=== PATIENT | male | born 1990 | race Caucasian/White ===

== ENCOUNTER 2025-09-29 23:32 | Inpatient (IN) | payer BC, SELFPAY ==
[2025-09-29 20:04] VITALS: BP 227/146
[2025-09-29] MEDS: DILAUDID 1.5 MG IV (21:19)
[2025-09-29 21:28] VITALS: BMI 62.6
[2025-09-29] MEDS: ZOFRAN 4 MG IV (21:32)
[2025-09-29 21:46] LABS: Hematocrit 42.1 % (39.0-52.0); Hemoglobin 13.8 g/dL (13.0-18.0); Mean Corp Hgb Conc. 32.8 g/dL (33.0-37.0); Mean Corpuscular Volume 89.2 fL (80.0-94.0); Nucleated Red Blood Cells % 0 % (-); Platelet Count 346 10^3/uL (130-400); Red Cell Dist. Width 12.7 % (11.5-14.5)
[2025-09-29 21:47] LABS: Urine Character Clear (Clear)
[2025-09-29 22:05] LABS: ALT (SGPT) 20 U/L (0-50); AST (SGOT) 23 U/L (17-59); Albumin 4.5 g/dl (3.5-5.0); Alkaline Phosphatase 89 U/L (38-126); Blood Urea Nitrogen 15 mg/dl (9-20); Calcium 9.5 mg/dl (8.4-10.2); Carbon Dioxide 25 mmol/L (22-30); Chloride 103 mmol/L (98-107); Estimated Creatinine Clearance > 125 ml/min; Glucose 107 mg/dl (70-99); Lipase 56 U/L (23-300); Potassium 4.4 mmol/L (3.5-5.1); Sodium 134 mmol/L (135-145); Total Protein 7.7 g/dl (6.3-8.2); eGFR > 60.00
[2025-09-29 22:09] LABS: Urine Red Blood Cell 50-60 /HPF (0-2); Urine White Cell 0-2 /HPF (0-5)
[2025-09-29 22:13] VITALS: BP 223/126
--- NOTE | 2025-09-29 22:18 | EDRN ---
Pt's says pt has had L flank pain all day, went to urgent care and because his bp was so high they would not give him pain medication. Pt did not have nausea until medicated with dilaudid in ED. No vomiting. Pt with difficulty urinating.
No fever/chills/cough, blood in urine/burning. Pt took ibuprofen and marijuana at home for pain which did not help. Pt with hx kidney stones and says pain is similar to previous pain with stone. Pt admits he has not taken any of his medications
in few weeks because he ran out and has not gone back to the doctor to get them refilled.
[2025-09-29] MEDS: FLOMAX 0.4 MG PO (23:03)
[2025-09-29] MEDS: TRANDATE 10 MG IV (23:04)
--- NOTE | 2025-09-29 23:07 | HPS.HSE ---
Family Physician
-
Family Physician: RAYO Mayfield
Chief Complaint
-
Flank pain
History of Present Illness
This is a 35-year-old male with past medical history significant for hypertension, nephrolithiasis status post tenting the past coming into the emergency department with flank pain.
Patient reports acute onset of left-sided flank pain starting around this afternoon with associated nausea but no vomiting. He denies any dysuria, urgency or frequency. He denies having any fevers or chills. He continue to have severe flank pain
so decided come to the emergency department. Patient had a prior history of nephrolithiasis about 10 years ago requiring stent placement.
Patient has history of longstanding hypertension but is noncompliant has not has not taken his blood pressure medications for about 1 month. He states that this is due to fear of a side effect of erectile dysfunction. He also has been diagnosed
with obstructive sleep apnea and does not use a CPAP.
In the emergency department patient was hypertensive to 223/126, pulse in the 80s, oxygen saturation of 95%. He was afebrile with a Tmax of 97.5.
CBC was notable for white count 14.1 otherwise unremarkable. Electrolytes BUN/creatinine with no reported creatinine 1.4 which is up from a prior baseline of 0.8 about 6 years ago. UA is positive for blood and RBCs but otherwise unremarkable. CT
of the abdomen pelvis with a 5 mm distal left ureteral calculus with mild obstructive uropathy.
Medical History
Past Medical History
Past Medical History: Reports HTN and Other (Nephrolithiasis, morbid obesity, anxiety, obstructive sleep apnea)
Past Surgical History: Reports Tonsilectomy and Other (Renal stents, rhinoplasty,)
Social History
Tobacco: Non-smoker
Alcohol: None
Drug: None
Personal:
Living: With Family
Employment: Not Employed
Family History
Family History: Not pertinent
Allergies / Home Medications
Allergies reflects when Allergies were last updated in [facility].
Home Medications with original date entered in [facility]
Allergy/Medication List:
Allergies
Allergy/AdvReac Type Severity Reaction Status Date / Time
vancomycin Allergy migraines. Verified 09/29/25 20:10
Home Medications
carvedilol 25 mg tablet 25 mg PO BID 09/29/25
hydrochlorothiazide 12.5 mg tablet 12.5 mg PO DAILY 09/29/25
lisinopril 5 mg tablet 5 mg PO DAILY 09/29/25
Review of Systems
-
Constitutional: Reports No Symptoms
EENT: Reports No Symptoms
Respiratory: Reports No Symptoms
Cardiac: Reports No Symptoms
Abdomen/GI: Reports No Symptoms
: Reports Flank Pain
Musculoskeletal: Reports No Symptoms
Skin: Reports No Symptoms
Neurological: Reports No Symptoms
Endocrine: Reports No Symptoms
Hematologic/Lymphatic: Reports No Symptoms
Psych: Reports No Symptoms
Physical Exam
Vital Signs
Vital Signs
Temp Pulse Resp BP Pulse Ox
97.5 F 86 16 223/126 95
09/29/25 20:04 09/29/25 22:13 09/29/25 22:13 09/29/25 22:13 09/29/25 22:13
Physical Exam
General: Well Developed, Well Nourished, No Apparent Distress and Morbidly Obese
HEENT: NormoCephalic, Moist mucous membranes and Atraumatic
Respiratory: Clear
Cardiac: S1/S2 and Regular Rhythm; No Murmur or Rub
GI: Soft, Non Tender, Non Distended and Normal Bowel Sounds; No Organomegaly
Rectal: Deferred by Provider
Musculoskeletal: No Clubbing, No Cyanosis and No Edema
Skin: No Rash
Neuro: AO x 3 and Nonfocal/grossly intact
Psych: Calm
Laboratory Results
-
09/29/25 21:39
09/29/25 21:39
Laboratory Results
Total Bilirubin 0.6 mg/dl (0.2-1.3) 09/29/25 21:39
AST 23 U/L (17-59) 09/29/25 21:39
ALT 20 U/L (0-50) 09/29/25 21:39
Alkaline Phosphatase 89 U/L (38-126) 09/29/25 21:39
Lipase 56 U/L (23-300) 09/29/25 21:39
Data Reviewed
-
CT Scan: Report Reviewed by me
Lab Data: Labs Reviewed by me
Old Records: Reviewed
Impression/Plan
-
IMPRESSION:
35-year-old with morbid obesity, uncontrolled hypertension noncompliant with antihypertensives, REAL noncompliant with CPAP presents to the emergency department with flank pain and found to have a 5 mm obstructing stone in the left distal ureter with
mild hydronephrosis. No signs of acute infection. Creatinine 1.4 with a prior creatinine of 0.8 about 6 years ago. Patient has not followed up. He is hypertensive here but is noncompliant with his antihypertensive regimen. He has no focal
neurological deficits. He has no chest pain.
PLAN:
Nephrolithiasis -5 mm obstructing left distal ureteral stone, no signs of acute infection. History of prior nephrolithiasis status post stenting.
- Admit to telemetry due to uncontrolled hypertension at this time
- N.p.o.
- Analgesics with oral and IV opioids.
� Antiemetics
� Consulted urology, urology aware and patient is scheduled for OR in AM.
Uncontrolled hypertension -noncompliance due to fear of ED
- Restart carvedilol on 5 mg now and continue department grams p.o. twice daily
� Restart patient's lisinopril 5 mg
- prn enalapril for now
Sleep apnea - not on cpap
- oxygen prn for now
DVT PPX - SCD pending procedure
Code status - Full Code
--- NOTE | 2025-09-29 23:11 | ED.GENMED ---
History of Present Illness
<Natalee Case PA-C - Last Filed: 09/29/25 23:16>
General
Chief Complaint: Flank Pain
Source: patient
Exam Limitations: none
Time Seen by Provider: 09/29/25 20:51
Nursing documentation reviewed up to this point in time: agreed with
History of Present Illness
History of Present Illness:
see MDM
Past History
<Natalee Case PA-C - Last Filed: 09/29/25 23:16>
Past History
ED Past Medical History: HTN (Noncompliant with medications), Hypercholesterolemia and Other (Cellulitis, lymphedema-left leg)
ED Past Surgical History: None
Social History
Tobacco: Non-smoker
Alcohol: None
Personal: Single
Living: with family
Employment: Employed (computer game programmer)
Family History
Family History: Other
Review of Systems
<Natalee Case PA-C - Last Filed: 09/29/25 23:16>
Review of Systems
Allergies reviewed?: Yes
All Other Systems: Not applicable
Phy Exam
<Natalee Case PA-C - Last Filed: 09/29/25 23:16>
Physical Exam
Physical Exam:
GENERAL: Alert, uncomfortable obese
Neck: supple
CARDIAC: Regular rate and rhythm .
LUNGS: Clear breath sounds bilaterally, no acute respiratory distress, no wheezes/rales/rhonchi
ABDOMEN: Soft, normal bowel sounds, nondistended, nontender no guarding, no rebound, neg landon's
: normal inspection of region
nontender testicles b/l
no rashes
NEUROLOGICAL: Alert and oriented, no focal neuro deficits
SKIN: Warm and dry, sk pale
PSYCH: Normal and appropriate interaction.
Course
<Natalee Case PA-C - Last Filed: 09/29/25 23:16>
Orders/Labs/Results
Orders:
Orders
09/29/25 21:10
HYDROmorphone [Dilaudid] 2 mg IV NOW STA
09/29/25 21:11
CT Abd/pel Without Iv Or Oral Urgent
Comment:
Reason For Exam: L flank pain
09/29/25 21:24
Ondansetron Injectable [Zofran] 4 mg .ROUTE .STK-MED ONE
09/29/25 21:32
Ondansetron Injectable [Zofran] 4 mg IV NOW STA
09/29/25 21:39
Complete Blood Count/With Diff Urgent
Comprehensive Metabolic Panel Urgent
Lipase Urgent
Urinalysis Reflex To Culture Urgent
Date Specimen was Collected: 09/29/25
Time Specimen was Collected: 21:18
Urine Microscopic Reflex Cult Urgent
09/29/25 22:57
Electrocardiogram (*1) Urgent
Reason for Study: Hypertension, Benign
EKG- Treatment ONCE
Labetalol HCl [Trandate] 10 mg IV NOW STA
Tamsulosin [Flomax] 0.4 mg PO NOW STA
09/29/25 22:58
Bladder Scan- Treatment ONCE
09/29/25 23:22
Carvedilol [Coreg] 25 mg PO NOW STA
09/29/25 23:25
HYDROmorphone [Dilaudid] 0.5 mg IV NOW STA
09/29/25 23:26
Admit/Transfer Patient As Directed
Co-Sign Provider:
Level of Care: Inpatient admission
Assign to:: Telemetry
Physician / Group: Alissa
Diagnosis: nephrolithiasis
Reason for Telemetry: Other
Other Reason for Telemetry: uncontrolled htn
Date to Stop Telemetry: 10/01/25
Time to Stop Telemetry: 11:00
Reason for Hospitalization: obstructing 5mm L ureteral stone
Expected length of stay greater than two midnights?: Yes
ELOS- Estimated Length of Stay in days: 2
I certify the patient meets the requirements for IP care: Yes
09/29/25 23:27
Code Status As Directed
Resuscitation Status: Full Code
09/29/25 23:32
Enalaprilat [Vasotec] 0.625 mg IV NOW STA
09/30/25 00:34
Acetaminophen [Tylenol] 650 mg PO Q4HPRN PRN
Bisacodyl [Dulcolax] 10 mg RECTAL [id number] PRN
Docusate W/Senna [Senokot-S] 1 tablet PO BIDPRN PRN
HydrALAZINE [Apresoline] 10 mg IV Q4HPRN PRN
Oxycodone [Roxicodone] 5 mg PO Q4HPRN PRN
Polyethylene Glycol Powder [Miralax] 17 grams PO DAILYPRN PRN
09/30/25 00:34
UROLOGY CONSULT Routine
Consulting Provider: Jeremiah Campbell
Was physician already notified: Yes
Activity As Directed
Activity Level: With Assistance
Intake/ Output As Directed
Frequency: Per unit guidelines
Pneumatic Compression Sleeves As Directed
Type: Knee high
Vital Signs As Directed
Frequency: Per unit guidelines
Pulse Ox/cont/shift [RESP] Routine
Quantity: 1
DX Deep Vein Thrombosis Video Routine
09/30/25 03:00
Ondansetron Injectable [Zofran] 4 mg IV Q6HPRN PRN
09/30/25 04:00
HYDROmorphone [Dilaudid] 1 mg IV Q4HPRN PRN
09/30/25 Breakfast
NPO
Allow oral meds: Yes
Allow clear liquids: Sips of Clears
Basic Metabolic Panel IN AM
Complete Blood Count/No Diff IN AM
Magnesium IN AM
09/30/25 08:00
Carvedilol [Coreg] 25 mg PO BID
Lisinopril [Zestril] 5 mg PO DAILY
09/30/25 22:00
Oxygen Therapy [O2 Therapy] [RESP] HS
Nasal Cannula Liter Flow: 2 LPM
Titrate/Wean O2 to maintain O2 sat greater than (%): 93
Special Instructions: HS for sleep apnea as needed
10/01/25 11:00
DC Protocol for Telemetry ONCE
Abnormal Lab Results
09/29/25
21:39
WBC 14.1 H 10^3/uL
(4.8-10.8)
MCHC 32.8 L g/dL
(33.0-37.0)
MPV 11.1 H fL
(7.4-10.4)
Abs Immat Gran (auto) 0.1 H 10^3/uL
(0-0.05)
Absolute Neuts (auto) 11.4 H 10^3/uL
(1.4-6.5)
Absolute Monos (auto) 0.7 H 10^3/uL
(0.1-0.6)
Neutrophils % 80.7 H %
(42.2-75.2)
Lymphocytes % 12.6 L %
(20.5-51.1)
Sodium 134 L mmol/L
(135-145)
Creatinine 1.4 H mg/dL
(0.7-1.3)
Glucose 107 H mg/dl
(70-99)
Urine Ketones 1+ A
(Negative)
Ur Occult Blood Reflex 4+ A
(Negative)
Urine RBC 50-60 A /HPF
(0-2)
Urine Bacteria (Reflex) Few A
(Negative)
Urine Albumin (Reflex) 2+ A
(Neg - Trace)
09/29/25 21:39
09/29/25 21:39
Vital Signs
Initial and Last Documented VS:
Initial Vital Signs
Temp Pulse Resp BP Pulse Ox
97.5 F 87 16 227/146 98
09/29/25 20:04 09/29/25 20:04 09/29/25 20:04 09/29/25 20:04 09/29/25 20:04
Last Documented Vital Signs
Temp Pulse Resp BP Pulse Ox
97.5 F 78 15 209/138 96
09/29/25 20:04 09/30/25 00:00 09/30/25 00:00 09/29/25 23:53 09/29/25 23:53
<Tiara Oviedo MD - Last Filed: 09/30/25 00:53>
Orders/Labs/Results
Orders:
Orders
09/29/25 21:10
HYDROmorphone [Dilaudid] 2 mg IV NOW STA
09/29/25 21:11
CT Abd/pel Without Iv Or Oral Urgent
Comment:
Reason For Exam: L flank pain
09/29/25 21:24
Ondansetron Injectable [Zofran] 4 mg .ROUTE .STK-MED ONE
09/29/25 21:32
Ondansetron Injectable [Zofran] 4 mg IV NOW STA
09/29/25 21:39
Complete Blood Count/With Diff Urgent
Comprehensive Metabolic Panel Urgent
Lipase Urgent
Urinalysis Reflex To Culture Urgent
Date Specimen was Collected: 09/29/25
Time Specimen was Collected: 21:18
Urine Microscopic Reflex Cult Urgent
09/29/25 22:57
Electrocardiogram (*1) Urgent
Reason for Study: Hypertension, Benign
EKG- Treatment ONCE
Labetalol HCl [Trandate] 10 mg IV NOW STA
Tamsulosin [Flomax] 0.4 mg PO NOW STA
09/29/25 22:58
Bladder Scan- Treatment ONCE
09/29/25 23:22
Carvedilol [Coreg] 25 mg PO NOW STA
09/29/25 23:25
HYDROmorphone [Dilaudid] 0.5 mg IV NOW STA
09/29/25 23:26
Admit/Transfer Patient As Directed
Co-Sign Provider:
Level of Care: Inpatient admission
Assign to:: Telemetry
Physician / Group: Alissa
Diagnosis: nephrolithiasis
Reason for Telemetry: Other
Other Reason for Telemetry: uncontrolled htn
Date to Stop Telemetry: 10/01/25
Time to Stop Telemetry: 11:00
Reason for Hospitalization: obstructing 5mm L ureteral stone
Expected length of stay greater than two midnights?: Yes
ELOS- Estimated Length of Stay in days: 2
I certify the patient meets the requirements for IP care: Yes
09/29/25 23:27
Code Status As Directed
Resuscitation Status: Full Code
09/29/25 23:32
Enalaprilat [Vasotec] 0.625 mg IV NOW STA
09/30/25 00:34
Acetaminophen [Tylenol] 650 mg PO Q4HPRN PRN
Bisacodyl [Dulcolax] 10 mg RECTAL [id number] PRN
Docusate W/Senna [Senokot-S] 1 tablet PO BIDPRN PRN
HydrALAZINE [Apresoline] 10 mg IV Q4HPRN PRN
Oxycodone [Roxicodone] 5 mg PO Q4HPRN PRN
Polyethylene Glycol Powder [Miralax] 17 grams PO DAILYPRN PRN
09/30/25 00:34
UROLOGY CONSULT Routine
Consulting Provider: Jeremiah Campbell
Was physician already notified: Yes
Activity As Directed
Activity Level: With Assistance
Intake/ Output As Directed
Frequency: Per unit guidelines
Pneumatic Compression Sleeves As Directed
Type: Knee high
Vital Signs As Directed
Frequency: Per unit guidelines
Pulse Ox/cont/shift [RESP] Routine
Quantity: 1
DX Deep Vein Thrombosis Video Routine
09/30/25 03:00
Ondansetron Injectable [Zofran] 4 mg IV Q6HPRN PRN
09/30/25 04:00
HYDROmorphone [Dilaudid] 1 mg IV Q4HPRN PRN
09/30/25 Breakfast
NPO
Allow oral meds: Yes
Allow clear liquids: Sips of Clears
Basic Metabolic Panel IN AM
Complete Blood Count/No Diff IN AM
Magnesium IN AM
09/30/25 08:00
Carvedilol [Coreg] 25 mg PO BID
Lisinopril [Zestril] 5 mg PO DAILY
09/30/25 22:00
Oxygen Therapy [O2 Therapy] [RESP] HS
Nasal Cannula Liter Flow: 2 LPM
Titrate/Wean O2 to maintain O2 sat greater than (%): 93
Special Instructions: HS for sleep apnea as needed
10/01/25 11:00
DC Protocol for Telemetry ONCE
Abnormal Lab Results
09/29/25
21:39
WBC 14.1 H 10^3/uL
(4.8-10.8)
MCHC 32.8 L g/dL
(33.0-37.0)
MPV 11.1 H fL
(7.4-10.4)
Abs Immat Gran (auto) 0.1 H 10^3/uL
(0-0.05)
Absolute Neuts (auto) 11.4 H 10^3/uL
(1.4-6.5)
Absolute Monos (auto) 0.7 H 10^3/uL
(0.1-0.6)
Neutrophils % 80.7 H %
(42.2-75.2)
Lymphocytes % 12.6 L %
(20.5-51.1)
Sodium 134 L mmol/L
(135-145)
Creatinine 1.4 H mg/dL
(0.7-1.3)
Glucose 107 H mg/dl
(70-99)
Urine Ketones 1+ A
(Negative)
Ur Occult Blood Reflex 4+ A
(Negative)
Urine RBC 50-60 A /HPF
(0-2)
Urine Bacteria (Reflex) Few A
(Negative)
Urine Albumin (Reflex) 2+ A
(Neg - Trace)
09/29/25 21:39
09/29/25 21:39
Vital Signs
Initial and Last Documented VS:
Initial Vital Signs
Temp Pulse Resp BP Pulse Ox
97.5 F 87 16 227/146 98
09/29/25 20:04 09/29/25 20:04 09/29/25 20:04 09/29/25 20:04 09/29/25 20:04
Last Documented Vital Signs
Temp Pulse Resp BP Pulse Ox
97.5 F 78 15 209/138 96
09/29/25 20:04 09/30/25 00:00 09/30/25 00:00 09/29/25 23:53 09/29/25 23:53
<Natalee Case PA-C - Last Filed: 09/29/25 23:16>
MDM/Problems Addressed
Differential Diagnosis Includes:
See MDM
MDM/Problems Addressed:
Note:
CHIEF COMPLAINT(S)
Severe groin and flank pain, dysuria, and urgency to urinate.
HISTORY OF PRESENT ILLNESS
The patient is a 35-year-old male with a history of kidney stones who presented with severe groin and left flank pain. The symptoms started this morning after moving bowels.. Throughout the day, he noticed increasing discomfort and described the
sensation as needing to urinate urgently, yet experiencing difficulty. He reported [facility] a [facility] where he was informed that he has multiple kidney stones, one located in his bladder or ureter. The patient has a history of kidney
stones and a stent placement in 2014. He mentioned severe pain, noting, 'Im like dying right now, I cant handle this,' and feels relief when pressure is applied. He is frequently attempting to urinate, with minimal success and dry heaves. He
mentions a sensation patel to his testicles being twisted, although he attributes some discomfort to previous surgeries (MIESHA) and appears reassured by explanations of stone irritation.
h/o HTN and is noncompliant with meds
no cp, sob, fever, chills, dysuria
PAST MEDICAL AND SURIGICAL HISTORY
The patient has a past medical history of kidney stones from 2014, requiring a stent placement, and has been hospitalized for cellulitis and bacteremia. He also experiences headaches.
CHRONIC MEDICAL CONDITIONS SIGNIFICANTLY AFFECTING CARE
The patient has hypertension but has not taken prescribed antihypertensive medications for about a month due to a lapse in obtaining a prescription renewal.
ALLERGIES
The patient denies any known drug allergies.
SOCIAL HISTORY
The patient serves in the and receives care through [facility]
PHYSICAL EXAM
- Genitourinary: No swelling of the testicles observed despite severe discomfort. The pain is localized to the groin and radiates downwards.
- Nursing notes reviewed and vital signs reviewed.
PROBLEM LIST
Acute Problems:
- Acute flank and groin pain due to kidney stones
- Urinary urgency and suspected obstruction due to kidney stones
Chronic Problems:
- Uncontrolled hypertension due to non-adherence to medication
PLAN
Initiation of intravenous access and administration of pain medication to relieve discomfort.
DIFFERENTIAL DIAGNOSIS
The Differential Diagnosis includes, in no particular order and is not limited to:
1. Ureteral stone
2. Cystitis
3. Urinary tract infection
4. Hydronephrosis
5. Acute prostatitis
6. Testicular torsion
7. Pyelonephritis
8. Epididymitis
9. Retroperitoneal fibrosis
10. Bladder outlet obstruction
35 y/o M
h/o kidney stone x 1 in the past, stent
also h/o noncompliance with BP med
here with severe L flank pain since this morning
cannot sit still
radiating to L groin
no testicular pains/welling
severely hypertensive, no cp, headache
in a lot of pain looks like kdiney stone
given 1.5 mg dialudid and pt had good pain relief bp 180/110 which is about baseline for being noncompmliatn
but rebounded back up to 220/120
cr up to 1.4 from 0.8 but that was years ago
ct shows distal L ureteral stone with hydro
urology aware
recommend NPO for likely stent tomorrow
will give dose of labetalol
<Natalee Case PA-C - Last Filed: 09/29/25 23:16>
*Pulse Oximetry
SaO2: 95
Oxygen Mode of Delivery: Room air
Patient hypoxic: no (95)
*Critical Care Note
Total Time (30-74mins, 75-104mins- exclusive of procedures): Not Applicable
ED Attending Note
<Natalee Case PA-C - Last Filed: 09/29/25 23:16>
-
Portions of this chart may have been created with voice recognition software.� Occasional wrong word or��sound alike� substitutions may have occurred due to the inherent limitations of voice recognition software.
<Tiara Oviedo MD - Last Filed: 09/30/25 00:53>
ED Attending Note
Patient seen and examined by attending physician: Yes
I performed the substantive portion of visit, reviewed & personally made and approve the management plan that is documented in note by myself or MEMO.: Yes
ED Attending Note:
I have seen and evaluated the patient with a [id number] encounter. I have spoken to the [MEMO] and involved in the medical history, the physical exam, medical decision making.
Evaluation and management service: agree unless noted differently below.
Results interpretation: agree unless noted differently below.
35-year-old man with history of hypertension, hyperlipidemia presenting with flank pain. Patient states that he went to urgent care was diagnosed with kidney stone. However he was found to be hypertensive so they could not prescribe him pain
medication. Patient states that this feels like his prior kidney stones. He does note that he is not taking his antihypertensives. On arrival patient's initial blood pressure was in the 220s. It did decrease to the 180s after Dilaudid however
did creep back up. During my evaluation patient is resting comfortably. His abdomen is soft nondistended nontender. Heart is regular rate and rhythm. Lungs are clear to auscultation bilaterally. Blood work does show slight leukocytosis as well
as elevated creatinine. Last creatinine was 4 years ago when it was normal.. CT scan with a 5 mm stone with mild hydro. Patient is hypertensive and does have an elevated creatinine. Difficult to say if this is acute or chronic given patient's
hypertension. Regardless we will give dose of antihypertensive. Discussed with hospitalist who excepted patient to their service
Discharge Plan
Departure
Patient Disposition: Admit
Date of Disposition: 09/29/25
Time of Disposition: 22:59
Admit to: Telemetry
Presentation/result/management discussed w/ accepting MD/DO: Hospitalist
Condition: Fair
Covid-19: Not Applicable
Discharge Problem:
Ureterolithiasis, Hypertensive urgency
Interventions
Interventions:
*Risk Screen - Suicide Last Done: 09/29/25 20:04
*General Assessment Last Done: 09/29/25 20:04
*Neglect/Abuse Screening Last Done: 09/29/25 22:04
*ED- Fall Risk Assessment Last Done: 09/29/25 22:13
*ED COVID-19 Vaccine History Last Done: 09/29/25 22:13
*ED Influenza Vaccine History Last Done: 09/29/25 22:13
*Nursing Disposition Last Done: 09/30/25 00:30
XT-Tlvwkz-Zdixtmebie Assessment Last Done: 09/29/25 22:22
ED-Male Genitourinary Assessment Last Done: 09/29/25 22:22
Discharge Date and Time
Discharge Date/Time: 09/30/25 00:30
[2025-09-29] MEDS: COREG 25 MG PO (23:39)
[2025-09-29] MEDS: DILAUDID 0.5 MG IV (23:39)
[2025-09-29 23:53] VITALS: BP 209/138
[2025-09-29] MEDS: VASOTEC 0.625 MG IV (23:54)
[2025-09-30] VITALS (8 sets, daily range): BP systolic 142–171; BP diastolic 83–109; BMI 63.1
--- NOTE | 2025-09-30 00:40 | PTCARENOTE ---
Pt arrived from the ED via stretcher and was a standby assist to bed. Initial assessment and admission questions completed. Iv found to be infiltrated and VAT team notified. New Iv placement initiated. Pt placed on 2L o2 and blood pressure
medications administered. Pt aware of current plan and call pimentel within reach.
[2025-09-30] MEDS: APRESOLINE 10 MG IV (01:00)
[2025-09-30 07:19] LABS: Hematocrit 38.9 % (39.0-52.0); Hemoglobin 13.0 g/dL (13.0-18.0); Mean Corp Hgb Conc. 33.4 g/dL (33.0-37.0); Mean Corpuscular Volume 87.4 fL (80.0-94.0); Platelet Count 293 10^3/uL (130-400); Red Cell Dist. Width 13.0 % (11.5-14.5)
--- NOTE | 2025-09-30 07:41 | W.SUR.PREOP ---
Pre-Operative Surgical Note
-
I have examined this patient prior to the performance of the scheduled procedure.
The patient's condition is unchanged from the time of the current History and
Physical and the patient is able to undergo the scheduled procedure.
CT imaging/report reviewed => 5 mm distal left ureteral stone noted w/ mild left hydronephrosis.
Presenting w/ ELLEN, leukocytosis, severe left renal colic.
AFVSS.
To OR this AM for left ULS vs. stent insertion only
IV Ancef 3g continuous improvement black belt to OR
Surgical consent to be signed in preop holding
[2025-09-30 07:55] LABS: Blood Urea Nitrogen 15 mg/dl (9-20); Calcium 9.1 mg/dl (8.4-10.2); Carbon Dioxide 26 mmol/L (22-30); Chloride 104 mmol/L (98-107); Estimated Creatinine Clearance > 125 ml/min; Glucose 104 mg/dl (70-99); Potassium 4.4 mmol/L (3.5-5.1); Sodium 136 mmol/L (135-145); eGFR > 60.00
--- NOTE | 2025-09-30 08:00 | CONS.URO ---
Consultation
-
Date/Time Consultation Requested: 09/30
Date/Time Consultation Performed: 09/30
Requesting Provider: Hospitalist
Performing Provider: Shannan
Reason for Consultation: obstructing distal left ureteral stone, ELLEN
Medical History
History of Present Illness
35M presenting to [facility] ED w/ left flank pain that began in afternoon on 09/29 w/ nausea.
Denies vomiting.
Denies frequency, urgency, dysuria, or hematuria.
H/o nephrolithiasis s/p stent placement and ESWL ~10 yrs ago (2015 per patient).
Of note, long-standing h/o HTN but non-compliance w/ BP medication.
H/o REAL but does not use CPAP as advised.
Hypertensive to 223/126.
Past Medical History
Past Medical History: HTN and Other (morbid obesity, nephrolithasis, anxiety, REAL)
Past Surgical History: Tonsilectomy, Urological (stent insertion, ESWL) and Other (rhinoplasty)
Social History
Tobacco: Non-smoker
Alcohol: None
Drug: None
Personal:
Living: With Family
Family History
Family History: Reviewed & Not Pertinent
Allergies/Home Medications
Allergies
Allergy/AdvReac Type Severity Reaction Status Date / Time
vancomycin Allergy migraines. Verified 09/29/25 20:10
Home Medications
�Medication �Instructions �Recorded �Confirmed �Type
carvedilol 25 mg tablet 25 mg PO BID Blood Pressure 09/29/25 09/29/25 History
hydrochlorothiazide 12.5 mg tablet 12.5 mg PO DAILY Fluid 09/29/25 09/29/25 History
Retention/Swelling
lisinopril 5 mg tablet 5 mg PO DAILY Blood Pressure 09/29/25 09/29/25 History
Review of Systems
-
History Source: Patient
A 12 point Review of Systems was completed except as noted: Yes
Constitutional: Reports No Symptoms
EENT: Reports No Symptoms
Respiratory: Reports No Symptoms
Cardiac: Reports No Symptoms
Abdomen/GI: Reports Nausea
: Reports Flank Pain
Musculoskeletal: Reports Edema
Skin: Reports No Symptoms
Neurological: Reports No Symptoms
Endocrine: Reports No Symptoms
Psych: Reports No Symptoms
Physical Exam
Vital Signs
Vital Signs
Temp Pulse Resp BP Pulse Ox
97.2 F 79 16 158/93 95
09/30/25 09:25 09/30/25 09:15 09/30/25 09:15 09/30/25 09:45 09/30/25 09:45
Lab / Testing Results
Laboratory Results
09/30/25 06:29
09/30/25 06:29
Physical Exam
General: No Apparent Distress and Comfortable
HEENT: Normocephalic and Anicteric
Respiratory: Non Labored Respirations
Cardiac: Regular Rhythm
Breast: N/A
GI: Soft and Non Tender
Rectal: Deferred by Provider
Genito-urinary: No Costovertebral Tend
Musculoskeletal: Edema
Skin: Warm and Dry
Neuro: AO x 3, No Motor Deficits and Nonfocal/Grossly Intact
Hematologic/Lymphatic: No Lymphadenopathy
Psych: Calm and Intact Judgement
Assessment / Plan
-
Obstructing distal left ureteral stone
ELLEN
Leukocytosis
CT imaging demonstrates obstructing 5 mm distal left ureteral stone w/ hydronephrosis.
Detailed discussion including SDM had w/ patient regarding risks, benefits, alternatives, and potential complications of ureteroscopy/laser lithotripsy/stone extraction/stent insertion vs. stent insertion ONLY.
Risks and potential complications include but not limited to urosepsis, bleeding, ureteral/bladder injury, risk of ureteral stricture formation, need for additional procedures/surgeries.
- To OR this AM for left USL vs. stent insertion only
- IV Ancef 3g agronomy specialist to OR
- Surgical consent signed in preop holding
D/w patient.
Data Reviewed
-
Total Time Spent with Patient (in minutes): 65
CT Scan: Image personally visualized and interpreted, Report Reviewed by Me, Discussed with Physician and Discussed with Patient
Lab Data: Labs Reviewed, Discussed with Physician and Discussed with Patient
Old Records: Reviewed
[2025-09-30 08:05] LABS: Magnesium 2.0 mg/dl (1.6-2.3)
--- NOTE | 2025-09-30 08:54 | W.IMMPOSTOP ---
Surgical Immed Post Op Note
-
Primary Surgeon: Shannan
Pre-op Diagnosis: ELLEN, leukocytosis, obstructing distal left ureteral stone
Post-op Diagnosis: Same
Procedure Performed: left ureteroscopy/stone extraction/stent insertion
Anesthesia Type: GETA
Specimen / Cultures: Stone for analysis/None
Estimated Blood Loss: Negligible
Drains: 4.6Fr x 26 cm JJ Tria left ureteral stent (on string tether)
Complications: None
Operative Findings:
Proximal urethral rings w/o stenosis or strictures noted, moderately purulent efflux of urine after stone manipulation and extraction.
Final KUB and cysto confirming appropriate stent position.
--- NOTE | 2025-09-30 10:00 | W.PN.UPDATE ---
Update Note
Progress Note Update
s/p left URS/stone extraction/stent insertion this AM.
Stent left on string tether (pt has previously had ureteroscopy and stents w/ string tether w/ prior urologists).
Plan:
- regular diet
- OK to d/c home from urologic perspective when clinically stable
- patient will remove stent on string tether @home on 10/03
Significant other called w/o answer - detailed VM left (Natalee).
D/w Hospitalist.
[2025-09-30] MEDS: COREG 25 MG PO (10:08)
[2025-09-30] MEDS: ZESTRIL 5 MG PO (10:09)
--- NOTE | 2025-09-30 13:08 | W.PN.HOSP.TC ---
Today's Communication/Plan
-
dc home if repeat BMP ok
Assessment / Plan
Assessment / Plan
Assessment:
ELLEN from obstructive uropathy
- CT: 5 mm distal left ureteral calculus with mild obstructive uropathy
- s/p left ureteroscopy/stone extraction/stent insertion on 09/30
- repeat BMP at 2pm; if Cr stable, dc home
- OP f/u 10/03 with Urology
Uncontrolled HTN
- continue Lisinopril/Coreg
REAL
- noncompliant with CPAP
DVT ppx: SCDs
Code: Full
More than 30 minutes spent in discharge including
Final examination of the patient
Summarizing hospital stay
Instructions for continuing care to all relevant caregivers
Preparation of discharge records, prescriptions, and referral forms
Total time spent (in minutes):41
Anticipated Discharge: Today
Subjective/Interval History
-
Date of Service: September 30, 2025
resting comfortably, no complaints at present
s/p left ureteroscopy/stone extraction/stent insertion
Objective Data
-
Labs:
Laboratory Results
09/30/25
06:29
WBC 14.9 H
Hgb 13.0
Hct 38.9 L
Plt Count 293
Sodium 136
Potassium 4.4
Chloride 104
Carbon Dioxide 26
BUN 15
Creatinine 1.3
Glucose 104 H
Calcium 9.1
Vital Signs:
Vital Signs
Temp Pulse Resp BP Pulse Ox
97.6 F 84 16 153/93 93
09/30/25 12:21 09/30/25 12:21 09/30/25 12:21 09/30/25 12:21 09/30/25 12:21
I&O
09/29/25 09/30/25 10/01/25
06:59 06:59 06:59
Intake Total 100 / 100
Balance 100 / 100
Physical Exam
-
General: No Apparent Distress
HEENT: Normocephalic and Atraumatic
Respiratory: Negative Wheezes
Cardiac: Regular Rhythm and S1/S2
GI: Soft
Genito-urinary: No Costovertebral Tender
Neuro: AO x 3
Psych: Calm
Data Reviewed
-
Total Time Spent with Patient (in minutes): 42
Labs: Labs Reviewed by me
--- NOTE | 2025-09-30 13:13 | W.DCSUMMARY ---
Discharge Summary
Discharge Data
Date of Admission: 09/29/25
Date of Discharge: 09/30/25
-
Pending Results: No
Hospital Course
35 y/o M, hx of HTN and REAL, Obesity presented to ER on 09/[address] showed 5 mm obstructing stone in the left distal ureter with mild hydronephrosis. Patient had mild ELLEN. He underwent left ureteroscopy/stone extraction/stent insertion
on 09/30/25. His repeat BMP improved. He was discharged home per Urology recommendations with plan to follow up in office in 3 days on 10/03.
Discharge Plan
-
Patient Disposition: Home (Routine Discharge)
Discharge Diagnosis/Procedures: obstructive uropathy/kidney stone
Condition: Fair
Diet: Regular
Activity: As tolerated
Referrals:
Keyana Solano CRNP [Family Provider, Family Practice]
Prescriptions:
New
acetaminophen 325 mg Tablet
650 mg PO Q4HPRN PRN (Reason: mild pain/BAILON/temp> 100.4F) Qty: 100 0RF
phenazopyridine [Pyridium] 200 mg tablet
200 mg PO TID PRN (Reason: Pain) Qty: 10 0RF
Rx Instructions:
for stent related pain
Continued
carvedilol 25 mg Tablet
25 mg PO BID
lisinopril 5 mg Tablet
5 mg PO DAILY
hydrochlorothiazide 12.5 mg Tablet
12.5 mg PO DAILY
Discharge Orders:
Discharge Patient (As Directed); Ordered 09/30/25
Ordered By: Jayme Duggan
Discharge Date and Time
Print Language: IRANIAN
[2025-09-30 14:33] LABS: Blood Urea Nitrogen 15 mg/dl (9-20); Calcium 9.8 mg/dl (8.4-10.2); Carbon Dioxide 26 mmol/L (22-30); Chloride 104 mmol/L (98-107); Estimated Creatinine Clearance > 125 ml/min; Glucose 119 mg/dl (70-99); Potassium 4.6 mmol/L (3.5-5.1); Sodium 134 mmol/L (135-145); eGFR > 60.00
--- NOTE | 2025-09-30 14:59 | CM ---
CM following re: discharge planning.
Reviewed pt's chart, met with pt and pt's spouse at bedside.
Pt is a 35 year old male, admitted with primary dx of ELLEN from obstructive uropathy, s/p left ureteroscopy/stone extraction/stent insertion.
Pt reports he lives with spouse and a son in a 2[place], no steps. Pt decried himself as independent in all areas [employer].
Discharge order noted. Pt is aware and he stated his spouse will transport home.
D/C plan: home no needs. Spouse to transport.
== END 2025-09-30 16:52 | disposition home or self-care (01) | DRG 660 ==
LOC: 2 NORTH 23:32
PROVIDERS: Physician Assistant; ADMITTING PHYSICIAN Internal Medicine; ATTENDING PHYSICIAN Internal Medicine; CONSULT PHYSICIAN Surgery; EMERGENCY PHYSICIAN Student in an Organized Health Care Education/Training Program; FAMILY PHYSICIAN Registered Nurse
PROC: 0T778DZ Dilation of Left Ureter with Intraluminal Device, Via Natural or Artificial Opening Endoscopic (ICD-10-PCS; 2025-09-30)
PROC: 0TC78ZZ Extirpation of Matter from Left Ureter, Via Natural or Artificial Opening Endoscopic (ICD-10-PCS; 2025-09-30)
PROC: BT1F1ZZ Fluoroscopy of Left Kidney, Ureter and Bladder using Low Osmolar Contrast (ICD-10-PCS; 2025-09-30)
DX: N13.2 Hydronephrosis with renal and ureteral calculous obstruction (principal); Z68.44 Body mass index [BMI] 60.0-69.9, adult; N17.9 Acute kidney failure, unspecified; I10 Essential (primary) hypertension; G47.33 Obstructive sleep apnea (adult) (pediatric); E66.01 Morbid (severe) obesity due to excess calories; D72.829 Elevated white blood cell count, unspecified; Z91.148 Patient's other noncompliance with medication regimen for other reason; Z79.899 Other long term (current) drug therapy
CPT/HCPCS: 51798; 74018; 74176; 76000; 80048; 80053; 81003; 81015; 83690; 83735; 85025; 85027; 87070; 93005; 96374; 96375; 96376; 99285; C1894